=== PATIENT | female | born 1970 ===

== ENCOUNTER 2019-02-18 19:49 | Inpatient (IN) | payer OTHER ==
[~2019-02-18] VITALS: Ht 162.6 cm; Wt 90.7 kg
--- NOTE | 2019-02-18 20:23 | NUR ---
SE RECIBE PTE LA CUAL REFIERE PRESENTAR DOLOR ABD DESDE HACE UNOS ANN, EN CUADRANTE SUPERIOR DERECHO. PTE LLEVA CONSIGO REFERIDO MEDICO EL CUAL INDICA QUE PTE DEBE SER EVALUADA POR ER PARA POSSIBLE ADMISION (PTE LLEVA CONSIGO LEVTURA DE CT PO WITH IV CONTRAST Y LABS)
[2019-02-26] MEDS ORDERED: NEURONTIN300 MG PO (15:09)
== END 2019-02-26 15:15 | disposition home or self-care (01) | DRG 392 ==
LOC: ER 19:49 → MEDJ 02-19 15:09 → SEC-K 02-19 15:09 → MEDJ 02-19 16:26
PROVIDERS: ADMIT Internal Medicine
PROC: BW40ZZZ Ultrasonography of Abdomen (ICD-10-PCS; 2019-02-19)
PROC: CF1C1ZZ Planar Nuclear Medicine Imaging of Hepatobiliary System, All using Technetium 99m (Tc-99m) (ICD-10-PCS; 2019-02-19)
PROC: BR39ZZZ Magnetic Resonance Imaging (MRI) of Lumbar Spine (ICD-10-PCS; 2019-02-20)
PROC: BR37ZZZ Magnetic Resonance Imaging (MRI) of Thoracic Spine (ICD-10-PCS; 2019-02-21)
PROC: 0DB78ZX Excision of Stomach, Pylorus, Via Natural or Artificial Opening Endoscopic, Diagnostic (ICD-10-PCS; principal; 2019-02-26)
DX: K29.50 Unspecified chronic gastritis without bleeding (principal); D68.8 Other specified coagulation defects
CPT/HCPCS: 72146; 72148